=== PATIENT | male | born 1980 | race African-American/Black ===

== ENCOUNTER 2019-11-19 02:48 | Emergency (ER) | payer OTHER ==
[~2019-11-19] VITALS: Ht 193 cm; Wt 139.3 kg
[2019-11-19] MEDS ORDERED: ZESTRIL20 MG PO (02:55)
[2019-11-19 03:39] LABS: ABSOLUTE NEUTROPHILS 8.6 thou/uL (1.4-8.2); BASOPHILS 0.2 % (0.0-2.0); EOSINOPHILS 0.3 % (0.0-3.0); HEMATOCRIT 43.4 % (42.0-52.0); HEMOGLOBIN 14.1 gm/dL (14.0-18.0); LYMPHOCYTES 13.6 % (24.0-44.0); MCHC 32.6 g/dL (28.0-37.0); MONOCYTES 10.7 % (1.0-8.0); PLATELET COUNT 281 thou/uL (150-400); POLYS 75.2 % (36.0-66.0); RBC 4.56 mil/uL (4.50-6.00); RDW 13.5 % (10.5-14.5); WBC 11.4 thou/uL (4.0-11.0)
[2019-11-19 03:49] LABS: ANION GAP 11 mmol/L (7-16); BUN 10 mg/dL (7-18); CALCIUM 8.6 mg/dL (8.5-10.1); CHLORIDE 100 mmol/L (98-107); CO2 24 mmol/L (21-32); CREATININE 1.3 mg/dL (0.7-1.3); GLUCOSE 115 mg/dL (74-106); POTASSIUM 3.6 mmol/L (3.5-5.1); SODIUM 135 mmol/L (136-145)
[2019-11-19 03:58] LABS: ALBUMIN 3.6 g/dL (3.4-5.0); LIPASE 85 U/L (73-393); SGOT 34 U/L (15-37); SGPT 76 U/L (30-65); TOTAL BILIRUBIN 1.3 mg/dL (0.2-1.0); TOTAL PROTEIN 7.6 g/dL (6.4-8.2); TROPONIN-I <0.06 ng/mL (<0.06)
[2019-11-19 05:35] LABS: URINE COLOR AMBER
[2019-11-19 05:36] LABS: URINE BILIRUBIN 2+ (Negative); URINE BLOOD NEGATIVE (Negative); URINE CLARITY CLEAR; URINE GLUCOSE-RANDOM* NEGATIVE (Negative); URINE KETONES 2+ (Negative); URINE LEUKOCYTES-REFLEX NEGATIVE (Negative); URINE NITRITE-REFLEX POSITIVE (Negative); URINE PROTEIN (DIPSTICK) 1+ (Negative); URINE SPECIFIC GRAVITY 1.025 (1.005-1.035)
[2019-11-19] MEDS ORDERED: TRAMADOL 50 MG50 MG PO (05:51)
[2019-11-19] MEDS ORDERED: FLAGYL500 M1 PO (05:51)
[2019-11-19] MEDS ORDERED: CIPROFLOXACIN500 M1 PO (05:51)
[2019-11-19 05:54] LABS: SQUAMOUS 4-10 Moderate /LPF (0-3)
[2019-11-19 05:55] LABS: BACTERIA-REFLEX 1-9 Few /HPF (None Seen); CASTS None Seen /LPF (None Seen); CRYSTALS None Seen /LPF (None Seen); MUCUS >6 Heavy strn/LPF (None Seen); URINE RBC 0-2 Rare /HPF (0-2); URINE WBC-REFLEX 0-5 Rare /HPF (0-5)
[2019-11-19 06:06] VITALS: BP 142/85
--- NOTE | 2019-11-19 16:38 | EKG ---
[facility] [place] [address] ELECTROCARDIOGRAM REPORT Name: CRICKET SHEETSKEREN Room #: DEP [facility]#: [id number] Admission: 11/19/19 Attend Phys: Discharge: 11/19/19 Date of : 84 Report #: [id number] THIS REPORT FOR: cc: NO FAMILY PHYSICIAN or PCP NO FAMILY PHYSICIAN or PCP Akin Cooper MD [facility] ~ THIS REPORT FOR: //name// [facility] ED Test Date: 2019-11-19 Test Time: 03:43:10 Pat Name: ATTILA SHEETS Department: Room: Gender: [employer] Operator: no : 1980 Requested By: Hugo Hercules Order Number: [id number] MD: Akin Cooper Measurements Intervals [place] Rate: 96 P: 38 TN: 149 QRS: 20 QRSD: 90 T: 3 QT: 327 QTc: 414 Interpretive Statements Sinus rhythm Nonspecific T wave abnormality No previous ECG available for comparison Electronically Signed On 11-19-2019 16:38:11 CDT by Akin Cooper [email or web address] <ELECTRONICALLY SIGNED> By: Akin Cooper MD, [facility] 11/19/19 1638 D: [id number] 2 Akin Cooper MD, FACC /EPI
== END 2019-11-19 06:22 | disposition home or self-care (01) ==
LOC: ER 02:48
PROVIDERS: Emergency Medicine
DX: K57.32 Diverticulitis of large intestine without perforation or abscess without bleeding (principal); I10 Essential (primary) hypertension; Z79.899 Other long term (current) drug therapy

== ENCOUNTER 2019-11-23 18:51 | Emergency (ER) | payer OTHER ==
[~2019-11-23] VITALS: Ht 193 cm; Wt 136.1 kg
[~2019-11-23 18:51] MED LIST: CIPROFLOXACIN500 M1 PO; FLAGYL500 M1 PO; TRAMADOL 50 MG50 MG PO; ZESTRIL20 MG PO
[2019-11-23 19:18] VITALS: BP 152/100
[2019-11-23 19:53] LABS: URINE BILIRUBIN NEGATIVE (Negative); URINE BLOOD NEGATIVE (Negative); URINE CLARITY CLEAR; URINE COLOR YELLOW; URINE GLUCOSE-RANDOM* NEGATIVE (Negative); URINE KETONES TRACE (Negative); URINE LEUKOCYTES-REFLEX TRACE (Negative); URINE NITRITE-REFLEX NEGATIVE (Negative); URINE PROTEIN (DIPSTICK) NEGATIVE (Negative); URINE SPECIFIC GRAVITY >= 1.030 (1.005-1.035)
[2019-11-23 20:12] LABS: ABSOLUTE NEUTROPHILS 8.4 thou/uL (1.4-8.2); BASOPHILS 0.5 % (0.0-2.0); EOSINOPHILS 0.7 % (0.0-3.0); HEMATOCRIT 40.7 % (42.0-52.0); HEMOGLOBIN 13.3 gm/dL (14.0-18.0); MCH 31.3 pg (26.0-34.0); MCHC 32.7 g/dL (28.0-37.0); MCV 95.5 fL (80.0-100.0); MONOCYTES 9.1 % (1.0-8.0); PLATELET COUNT 355 thou/uL (150-400); POLYS 71.7 % (36.0-66.0); RBC 4.27 mil/uL (4.50-6.00); WBC 11.8 thou/uL (4.0-11.0)
[2019-11-23 20:26] LABS: CALCIUM 8.4 mg/dL (8.5-10.1); CREATININE 1.1 mg/dL (0.7-1.3)
[2019-11-23 20:30] LABS: ALBUMIN 3.3 g/dL (3.4-5.0); TOTAL BILIRUBIN 0.5 mg/dL (0.2-1.0); TOTAL PROTEIN 7.5 g/dL (6.4-8.2)
== END 2019-11-23 22:35 | disposition home or self-care (01) ==
LOC: ER 18:51
PROVIDERS: Emergency Medicine
DX: K59.00 Constipation, unspecified (principal); R30.0 Dysuria; I10 Essential (primary) hypertension; Z79.899 Other long term (current) drug therapy